=== PATIENT | female | born 1995 | race African-American/Black ===

== ENCOUNTER 2016-08-31 19:50 | Emergency (ER) | payer BC ==
[~2016-08-31] VITALS: Ht 160 cm; Wt 57.0 kg
[~2016-08-31 19:50] MED LIST: BCPILLS PO
[2016-08-31 19:58] VITALS: Ht 160 cm; Wt 57.0 kg
[2016-08-31 20:03] VITALS: O2SAT 97
[2016-08-31] MEDS ORDERED: FLUORIDE TOOTHPASTE (20:22)
--- NOTE | 2016-08-31 21:30 | EMERGENCY ROOM VISIT NOTE ---
History Report prepared by Krishna: [facility] Under the Supervision of: Dr. Kyle Mccloud D.O. First contact with patient: 19:55 Stated Complaint: PANIC ATTACK History of Present Illness The patient is a 21 year old female who presents to the Emergency Room with complaints of a constant panic attack starting prior to arrival. The patient states that she was swimming in a pool for an hour and half, and she went home and ate some cheese curls, and she started to feel dizzy. The patient states that she was standing, and she started trembling and having shortness of breath. She states that when she gets nervous about this she has trembles like this, however it is not usually this bad. She states that she states that she is not currently nervous about anything. The patient additionally denies any recent fever or illness. The patient states that she takes control, she drinks alcohol, and she does not smoke. Source of History: patient Onset: prior to arrival Position: other (general) Quality: other (panic attack) Timing: constant Associated Symptoms: + SOB, No fevers Note: Associated symptoms: Trembling Review of Systems See HPI for pertinent positives & negatives. A total of 10 systems reviewed and were otherwise negative. Past Medical & Surgical Social History Problems: (1) Uses control Family History Blood clots Social History Smoking Status: Never Smoker Marital Status: single Housing Status: lives with roommate Occupation Status: [employer] student Current/Historical Medications Scheduled Control Pills ( Control Pills), 1 TAB PO QPM [Fluoride Toothpaste], 1 APPLN QPM Allergies Uncoded Allergies: TETANUS (Allergy, Intermediate, hives, itching, 07/02/15) Physical Exam Vital Signs Date Time Temp Pulse Resp B/P (MAP) Pulse Ox O2 Delivery O2 Flow Rate FiO2 08/31/16 21:38 36.7 85 16 101/78 97 08/31/16 20:05 121 08/31/16 20:03 97 Room Air 08/31/16 19:58 36.7 120 20 121/115 97 Room Air Physical Exam CONSTITUTIONAL/VITAL SIGNS: Reviewed / noted above. GENERAL: Non-toxic in appearance. INTEGUMENTARY: Warm, dry, and [place]. HEAD: Normocephalic. EYES: without scleral icterus or trauma. ENT/OROPHARYNX: clear and moist. LYMPHADENOPATHY/NECK: Is supple without lymphadenopathy or meningismus. RESPIRATORY: Lungs clear and equal. CARDIOVASCULAR: Regular rate and rhythm. GI/ABDOMEN: Soft and nontender. No organomegaly or pulsatile mass. No rebound or guarding. Normal bowel sounds. EXTREMITIES: Voluntary shaking movements noted to the legs predominantly and occasionally the arms. Warm and well perfused. BACK: No CVA tenderness. NEUROLOGICAL: Intact without focal deficits. PSYCHIATRIC: normal affect. MUSCULOSKELETAL: Normally developed with good muscle tone. Medical Decision & Procedures ED Course 1954: Previous medical records were reviewed. The patient was evaluated in room A3. A complete history and physical examination was performed. 2132: On reevaluation, the patient is resting. I discussed the results and findings with the patient. She verbalized agreement of the treatment plan. She was discharged home. Medical Decision differential includes toxic ingestions, self-mutilation, suicidal ideation, suicide attempt, depression. This is a 21-year-old female who presents to the ED with a chief complaint of shaking. The patient states that she gets this way when she is going to speak in front of people for me people. She was going out to dinner with some friends. She began shaking with her extremities. It was mainly her lower extremities that she was shaking and then the upper left so. This appears to be voluntary. She denies any other symptoms. She was awake and alert during this time and was able to answer questions appropriately. The patient was observed here for a short while. Her symptoms resolved. She is felt to be stable for discharge. Impression Primary Impression: Acute anxiety Scribe Attestation The scribe's documentation has been prepared under my direction and personally reviewed by me in its entirety. I confirm that the note above accurately reflects all work, treatment, procedures, and medical decision making performed by me. Departure Information Dispostion Home / Self-Care Referrals No Doctor, Assigned (PCP) Forms HOME CARE DOCUMENTATION FORM, IMPORTANT VISIT INFORMATION Additional Instructions Follow-up with your doctor for further care and evaluation in 1-2 days. Return to the emergency department for worsening or new symptoms or any concerns. You have been examined and treated today on an emergency basis only. This is not a substitute for, or an effort to provide, complete comprehensive medical care. It is impossible to recognize and treat all injuries or illnesses in a single emergency department visit. It is therefore important that you follow up closely with your doctor. Call as soon as possible for an appointment.
[2016-08-31 21:38] VITALS: BP 101/78; PULSE 85; TEMP 36.7; O2SAT 97
== END 2016-08-31 21:39 | disposition home or self-care (01) ==
LOC: EDBD 19:50 → C.EDA 19:53
DX: F41.9 Anxiety disorder, unspecified (principal)